=== PATIENT | male | born 1970 | race Caucasian/White ===

== ENCOUNTER 2016-10-06 10:00 | Emergency (ER) | payer OTHER ==
--- NOTE | 2016-10-06 12:24 | ED Physician Documentation ---
General Adult - HISTORIAN Historian: patient - HPI Stated Complaint: left wrist injury Chief Complaint: General Adult Onset: hours Timing: still present Severity: moderate Further Comments: yes (Pt is a 45 yo male Oywvfzg-Jygpg-Yuext Disease. Pt twisted his L wrist and fell and twisted his L leg while getting out of a truck. Pt hyperextended his L wrist. Pt has chronic numbness in extremities and sometimes is unable to feel pain from an injury.) - ROS CONST: no problems EYES/ENT: none CVS/RESP: none GI/: none MS/SKIN/LYMPH: other (L wrist and L leg injury) NEURO/PSYCH: numbness (chronic, in extremities) - PAST HX Past History: other (Razoyjc-Fkubh-Elcon disease) Other History: diabetes Type 2 Allergies/Adverse Reactions: Allergies Allergy/AdvReac Type Severity Reaction Status Date / Time No Known Allergies Allergy Verified 10/06/16 10:09 Home Medications: Ambulatory Orders Medication Instructions Recorded Atorvastatin Calcium [Atorvastatin 10 mg PO DAILY 10/06/16 Calcium] Escitalopram Oxalate [Lexapro] 10 mg PO DAILY 10/06/16 Fenofibrate [Fenofibrate] 160 mg PO DAILY 10/06/16 Hydrocodone/Acetaminophen 1 tab PO DAILY 10/06/16 [Hydrocodon-Acetaminophn 10-325] LORazepam [Ativan] 0.5 mg PO TID 10/06/16 Oxycodone HCl/Acetaminophen 1 tab PO DAILY 10/06/16 [Oxycodone-Acetaminophen 10-325] Quetiapine Fumarate [Seroquel] 50 mg PO DAILY 10/06/16 Tramadol HCl [Ultram] 50 mg PO DAILY 10/06/16 - SOCIAL HX Smoking History: non-smoker - FAMILY HX Family History: No - VITAL SIGNS Vital Signs: Vital Signs Temp Pulse Resp BP Pulse Ox 97.0 F L 92 H 20 153/98 97 10/06/16 10:03 10/06/16 10:03 10/06/16 10:03 10/06/16 10:03 10/06/16 10:03 - REVIEWED ASSESSMENTS Nursing Assessment Reviewed: Yes Vitals Reviewed: Yes Progress - Progress Progress: X-ray L wrist: Examination left wrist in palmar, lateral and oblique views fails to demonstrate evidence of fracture, dislocation or other bone or joint pathology. X-ray L tib/fib: Examination left tibia and fibula in AP and lateral views fails to demonstrate evidence of fracture, dislocation or other bone or joint pathology. wrist splint ED Results Lab/Radiology - Orders Orders: ED Orders Category Date Time Status Wrist Splint 1T Care 10/06/16 12:23 Ordered TIBIA & FIBULA 2 VIEW [RAD] Stat Exams 10/06/16 Ordered WRIST 3 VIEWS OR MORE [RAD] Stat Exams 10/06/16 Ordered General Adult Physical Exam - PHYSICAL EXAM GENERAL APPEARANCE: mild distress EENT: eye inspection normal NECK: normal inspection, supple RESPIRATORY: no resp distress SKIN: warm/dry, normal color EXTREMITIES: tenderness (L wrist, L leg) NEURO: oriented X3, motor nml, other (chronic distal extremity numbness) Discharge Clincal Impression: Left wrist sprain Qualifiers: Encounter type: initial encounter Qualified Code(s): S63.502A - Unspecified sprain of left wrist, initial encounter Referrals: Primary Doctor,No [Primary Care Provider] - 2 Days Home Medications: Ambulatory Orders Atorvastatin Calcium [Atorvastatin Calcium] 10 mg PO DAILY 10/06/16 Escitalopram Oxalate [Lexapro] 10 mg PO DAILY 10/06/16 Fenofibrate [Fenofibrate] 160 mg PO DAILY 10/06/16 Hydrocodone/Acetaminophen [Hydrocodon-Acetaminophn 10-325] 1 tab PO DAILY LORazepam [Ativan] 0.5 mg PO TID 10/06/16 Oxycodone HCl/Acetaminophen [Oxycodone-Acetaminophen 10-325] 1 tab PO DAILY Quetiapine Fumarate [Seroquel] 50 mg PO DAILY 10/06/16 Tramadol HCl [Ultram] 50 mg PO DAILY 10/06/16 Condition: Good Disposition: 01 HOME, SELF-CARE Decision to Admit: NO Decision Time: 12:24
[2016-10-06 12:33] VITALS: BP 146/100
--- NOTE | 2016-10-06 14:24 | Diagnostic Imaging Report ---
RENZO SHEPARD [facility] [id number] [facility].[address] [address] Report Submission Date: October 06, 2016 12:21:16 PM CDT Patient Study Name: SPENSER HIDALGO Date: October 06, 2016 11:16:56 AM CDT Modality Type: CR Gender: M Description: UPPER EXTREMITY : 70 Institution: [facility] Physician: RENZO SHEPARD Left wrist -three views CLINICAL HISTORY: Fall. Wrist pain. FINDINGS: Examination left wrist in palmar, lateral and oblique views fails to demonstrate evidence of fracture, dislocation or other bone or joint pathology. Electronically signed on October 06, 2016 12:21:16 PM CDT by: Rm NOGUEIRA
--- NOTE | 2016-10-06 14:25 | Diagnostic Imaging Report ---
RENZO SHEPARD [facility] [address] [facility] [address] [address] Report Submission Date: October 06, 2016 12:21:57 PM CDT Patient Study Name: SPENSER HIDALGO Date: October 06, 2016 11:05:33 AM CDT Modality Type: CR Gender: M Description: LOWER EXTREMITY : 70 Institution: [facility] Physician: RENZO SHEPARD Left tibia and fibula -two views CLINICAL HISTORY: Fall. Pain. FINDINGS: Examination left tibia and fibula in AP and lateral views fails to demonstrate evidence of fracture, dislocation or other bone or joint pathology. Electronically signed on October 06, 2016 12:21:57 PM CDT by: Rm NOGUEIRA
== END 2016-10-06 12:31 | disposition home or self-care (01) ==
LOC: ED 10:00
DX: S63.502A Unspecified sprain of left wrist, initial encounter (principal); W19.XXXA Unspecified fall, initial encounter; Y93.9 Activity, unspecified; Y99.9 Unspecified external cause status
CPT/HCPCS: 73110; 73590; L3908; 99283